=== PATIENT | female | born 1935 | race Two or more races ===

== ENCOUNTER 2019-03-03 16:28 | Inpatient (IN) | payer OTHER ==
[~2019-03-03] VITALS: Ht 157.5 cm; Wt 63.5 kg
[2019-03-04 00:10] VITALS: BP 103/49
--- NOTE | 2019-03-04 00:10 | NUR ---
MS MARIA TERESA ADMITTING NOTES RECEIVED PT VIA DIRECT ADMIT FROM [facility] IN STABLE CONDITION WITH FAMILY AT BEDSIDE. PT A/O X1-2 WITH PERIODS OF CONFUSION. RESPIRATIONS EVEN AND UNLABORED WITH NO S/S OF ACUTE DISTRESS OR SOB NOTED AT THIS TIME. NO COMPLAINTS OF PAIN AT THIS TIME. PT NOTED WITH RHAND #22G PATENT AND INTACT AND SL. SAFETY MEASURES IN PLACE WITH BED IN LOWEST LOCKED POSITION WITH SIDE RAILS UP X2. ORIENTED PT TO ROOM AND STAFF. CALL LIGHT WITHIN REACH. WILL CONTINUE TO MONITOR. Addendum: 03/04/19 at 0451 by ANU DELCID RN PT A/O X2-3 WITH PERIODS OF CONFUSION. PT [place].
--- NOTE | 2019-03-04 00:20 | NUR ---
MS RN NOTES PT REFUSES PHOTOS AT THIS TIME. WILL CONTINUE TO MONITOR.
[2019-03-04] MEDS ORDERED: CELE100C PO (01:07)
[2019-03-04] MEDS ORDERED: SULF1TAB48 PO (01:07)
[2019-03-04] MEDS ORDERED: ATOR20TA PO (01:07)
[2019-03-04] MEDS ORDERED: LOSA1TAB3 PO (01:07)
[2019-03-04] MEDS ORDERED: ASPI-1169 PO (01:07)
[2019-03-04] MEDS ORDERED: CALC0.253 PO (01:07)
[2019-03-04] MEDS ORDERED: MULT1TAB73 PO (01:07)
[2019-03-04] MEDS ORDERED: AMLO5TAB9 PO (01:07)
--- NOTE | 2019-03-04 01:10 | NUR ---
MS RN NOTES MD MADE AWARE OF PT ARRIVAL ONTO UNIT. AWAITING FURTHER ORDERS. WILL CONTINUE TO MONITOR.
--- NOTE | 2019-03-04 03:49 | NUR ---
MS RN NOTES STILL AWAITING MD ORDERS. MD PAGED. WILL CONTINUE TO MONITOR.
[2019-03-04] MEDS ORDERED: HYDROCODONE/APAP 10/325MG 1 EA TABLET PO PRN (04:00)
[2019-03-04] MEDS: ENOXAPARIN SODIUM 40 MG/0.4 ML DISP.SYRIN SQ SCH ×2 (04:00→17:55)
[2019-03-04] MEDS ORDERED: MORPHINE SULFATE INJ 2 MG/ML DISP.SYRIN IV PRN (04:00)
[2019-03-04] MEDS ORDERED: MAGNESIUM HYDROXIDE 30 ML UDC PO PRN (04:00)
[2019-03-04] MEDS ORDERED: ACETAMINOPHEN 325 MG TABLET PO PRN (04:00)
[2019-03-04] MEDS ORDERED: HYDROCODONE/APAP 5/325MG 1 EACH TABLET PO PRN (04:00)
[2019-03-04] MEDS ORDERED: ONDANSETRON HCL/PF 4 MG/2 ML VIAL IVP PRN (04:00)
[2019-03-04] MEDS ORDERED: ZOLPIDEM TARTRATE 5 MG TABLET PO PRN (04:00)
[2019-03-04] MEDS ORDERED: MAG HYDROX/AL HYDROX/SIMETH 30 ML UDC PO PRN (04:00)
[2019-03-04] MEDS ORDERED: Z GUARD REMEDY 2 OZ OINT TP PRN (04:00)
--- NOTE | 2019-03-04 04:29 | NUR ---
MS RN NOTES PT REFUSED LOVENOX AT THIS TIME. PT STATED THAT SHE WANTED TO SLEEP.
[2019-03-04] MEDS: IV NS 0.9% 1,000 ML IV PRN ×2 (04:36→22:06)
[2019-03-04 06:19] LABS: BASOPHILS % (AUTO) 0.6 % (0.0-2.0); EOSINOPHILS % (AUTO) 1.7 % (0.0-6.0); HEMATOCRIT 34 % (33-45); HEMOGLOBIN 11.4 g/dL (11.5-14.8); LYMPHOCYTES # (AUTO) 1.2 /CMM (0.8-4.8); LYMPHOCYTES % (AUTO) 19.8 % (20.0-44.0); MEAN CORPUSCULAR HGB CONC 33 g/dl (31.0-36.0); MEAN CORPUSCULAR VOLUME 94 fL (82-100); MONOCYTES # (AUTO) 0.6 /CMM (0.1-1.30); MONOCYTES % (AUTO) 9.2 % (2.0-12.0); NEUTROPHILS # (AUTO) 4.2 /CMM (1.8-8.9); NEUTROPHILS % (AUTO) 68.7 % (43.0-81.0); PLATELET COUNT (AUTO) 223 /CMM (150-450); RED BLOOD CELL COUNT(AUTO) 3.63 MIL/uL (4.0-5.2); WHITE BLOOD COUNT (AUTO) 6.1 K/uL (4.3-11.0)
--- NOTE | 2019-03-04 06:41 | NUR ---
MS RN NOTES PT IN BED SLEEPING BUT EASILY AWOKEN VERBALLY OR BY TOUCH. PT A/O X2-3 WITH PERIODS OF CONFUSION AND GERMAN SPEAKING. RESPIRATIONS EVEN AND UNLABORED WITH NO S/S OF ACUTE DISTRESS OR SOB NOTED THROUGHOUT SHIFT. NO COMPLAINTS OF PAIN AT THIS TIME. PT NOTED WITH RHAND #22G PATENT AND INTACT INFUSING NS @75CC/HR. SAFETY MEASURES IN PLACE WITH BED IN LOWEST LOCKED POSITION WITH SIDE RAILS UP X2. PT KEPT CLEAN, DRY, AND COMFORTABLE. CALL LIGHT WITHIN REACH. WILL ENDORSE TO ONCOMING NURSE FOR SAURAV.
[2019-03-04 06:54] LABS: CHOLESTEROL 128 mg/dL (<200); HDL CHOLESTEROL 57 mg/dL (40-60); LDL 62 mg/dL (0-99); THYROID STIMULATING HORMONE 1.609 uIU/mL (0.358-3.74); TRIGLYCERIDES 74 mg/dL (30-150)
[2019-03-04 06:59] LABS: ALANINE AMINOTRANSFERASE 30 U/L (12-78); ALBUMIN 2.6 g/dL (3.4-5.0); ALKALINE PHOSPHATASE 127 U/L (46-116); ASPARTATE AMINOTRANSFERASE 34 U/L (15-37); BILIRUBIN,TOTAL 0.4 mg/dL (0.2-1.0); CALCIUM, SERUM 8.8 mg/dL (8.5-10.1); CARBON DIOXIDE 24 mmol/L (21-32); CHLORIDE 104 mmol/L (98-107); CREATININE 1.1 mg/dL (0.6-1.3); GLUCOSE 73 mg/dL (74-106); MAGNESIUM 1.7 mg/dL (1.8-2.4); PHOSPHORUS 3.6 mg/dL (2.5-4.9); POTASSIUM 4.6 mmol/L (3.5-5.1); SODIUM SERUM 140 mmol/L (136-145); TOTAL PROTEIN, SERUM 6.6 g/dL (6.4-8.2); UREA NITROGEN, BLOOD 22 mg/dL (7-18)
[2019-03-04 08:00] VITALS: BP 103/63
[2019-03-04] MEDS: SULFAMETH/TRIMETH 800/160 MG 1 UDTAB TABLET PO SCH ×2 (08:27→16:22)
[2019-03-04] MEDS: MULTIVITAMINS,THERAGRAN 1 UDTAB TABLET PO SCH (08:27)
[2019-03-04] MEDS: CALCITRIOL 0.25 MCG CAPSULE PO SCH ×2 (08:27→16:22)
[2019-03-04] MEDS: ASPIRIN 81 MG TAB.CHEW PO SCH (08:27)
[2019-03-04] MEDS: LOSARTAN/HCTZ 50-12.5MG/ 1 EA TABLET PO SCH (08:28)
[2019-03-04] MEDS: AMLODIPINE BESYLATE 5 MG TABLET PO SCH (08:28)
[2019-03-04] MEDS: Magnesium 1GM/D5W 100ML PREMIX 100 ML IV SCH ×2 (12:40→13:47)
[2019-03-04 16:00] VITALS: BP 111/56
--- NOTE | 2019-03-04 18:00 | NUR ---
Patient refused Lovenox. Education provided and patient still strongly refuse
--- NOTE | 2019-03-04 18:58 | NUR ---
Patient in bed resting comfortably , IV fluids running as ordered. Patient able to use BSC with assistance. All needs attended, patient kept clean and dry. Breathing unlabored and even on room air, not in any distress, denies discomfort and pain. Will endorse to next shift for SAURAV.
--- NOTE | 2019-03-04 19:08 | NUR ---
Bed alarm activated for safety, call light within reach
--- NOTE | 2019-03-04 19:10 | NUR ---
MS RN OPENING NOTES Received patient A/O x 1, awake on bed, on RA, no s/sx of discomfort noted at this time. Kept on bed clean, dry and comfortable. Call light within easy reach. On fall and aspiration precautions. Will continue to monitor accordingly.
[2019-03-04 20:00] VITALS: BP 111/56
[2019-03-04] MEDS ORDERED: ATORVASTATIN 10 MG TABLET PO SCH (22:00)
[2019-03-05 06:16] LABS: BASOPHILS % (AUTO) 0.9 % (0.0-2.0); EOSINOPHILS % (AUTO) 3.4 % (0.0-6.0); HEMATOCRIT 30 % (33-45); HEMOGLOBIN 10.1 g/dL (11.5-14.8); LYMPHOCYTES # (AUTO) 1.4 /CMM (0.8-4.8); LYMPHOCYTES % (AUTO) 26.1 % (20.0-44.0); MEAN CORPUSCULAR HGB CONC 34 g/dl (31.0-36.0); MEAN CORPUSCULAR VOLUME 94 fL (82-100); MONOCYTES # (AUTO) 0.6 /CMM (0.1-1.30); MONOCYTES % (AUTO) 10.7 % (2.0-12.0); NEUTROPHILS # (AUTO) 3.1 /CMM (1.8-8.9); NEUTROPHILS % (AUTO) 58.9 % (43.0-81.0); PLATELET COUNT (AUTO) 193 /CMM (150-450); RED BLOOD CELL COUNT(AUTO) 3.16 MIL/uL (4.0-5.2); WHITE BLOOD COUNT (AUTO) 5.2 K/uL (4.3-11.0)
--- NOTE | 2019-03-05 06:41 | NUR ---
MS RN CLOSING NOTES Patient asleep, easily awaken. On RA, no SOB/respiratory stress noted. No complaints of pain at this time. Due meds given as ordered. All nursing needs attended. On fall and aspiration precautions. Endorsed to the next shift.
[2019-03-05 06:46] LABS: PHOSPHORUS 2.8 mg/dL (2.5-4.9)
[2019-03-05 08:00] VITALS: BP 100/45
--- NOTE | 2019-03-05 08:00 | NUR ---
MS RN OPENING NOTES Received patient A/O x 1, awake on bed, on RA, no s/sx of discomfort noted at this time. Kept on bed clean, dry and comfortable.Assisted to the bedside commode to void and back to bed.Good pericare done.Pt crying in pain.Will do pain mgt with [place] PRN. Son in law at the bedside.Call light within easy reach. On fall and aspiration precautions. Will continue to monitor accordingly.
[2019-03-05] MEDS: LOSARTAN/HCTZ 50-12.5MG/ 1 EA TABLET PO SCH (08:42)
[2019-03-05 08:43] VITALS: BP 100/45
[2019-03-05] MEDS: AMLODIPINE BESYLATE 5 MG TABLET PO SCH (08:43)
[2019-03-05] MEDS: MULTIVITAMINS,THERAGRAN 1 UDTAB TABLET PO SCH (08:46)
[2019-03-05] MEDS: SULFAMETH/TRIMETH 800/160 MG 1 UDTAB TABLET PO SCH (08:46)
[2019-03-05] MEDS: CALCITRIOL 0.25 MCG CAPSULE PO SCH (08:46)
[2019-03-05] MEDS: ASPIRIN 81 MG TAB.CHEW PO SCH (08:46)
--- NOTE | 2019-03-05 08:58 | NUR ---
WOUND CARE CONSULT: PT PRESENTS WITH MULTIPLE AREAS OF BRUISING/SKIN DISCOLORATION AND RAISED AREA TO RT BUTTOCK, SACRAL SCAR, ALL PRESENT ON ADMISSION. PT EXAMINED BY Hi GUERRA N.P. AND NO NEED FOR SURGICAL CONSULT PER N.P. CURRENT RUBY SCORE IS 15. RECOMMENDATIONS MADE FOR SKIN PROTECTION. DISCUSSED WITH NURSING STAFF. WILL SEE PRN. O[place] IN AGREEMENT WITH PLAN OF CARE. Addendum: 03/05/19 at 0900 by AILIN HALL WNDNU Amended: Links added.
[2019-03-05] MEDS: ENSURE ENLIVE CHOC 237 ML CAN PO SCH ×2 (09:00→12:00)
--- NOTE | 2019-03-05 14:48 | NUR ---
DISCHARGED PT HOME WITH [facility] FOLLOW UP FOR PT REHAB [place] . IV H/L REMOVED TO RT HAND WITH NO BLEEDING NOTED.WITH STABLE V/S.DENIES PAIN OR DISTRESS AND WAS RUSHING TO GO HOME.ACCOMPANIED BY HER SON IN LAW,
== END 2019-03-05 14:48 | disposition home health service (06) | DRG 384 ==
LOC: MEDSG2 23:58
PROVIDERS: ADMIT Internal Medicine; ATTEND Nurse Practitioner Acute Care
DX: S30.0XXA Contusion of lower back and pelvis, initial encounter (principal); N17.0 Acute kidney failure with tubular necrosis; E43 Unspecified severe protein-calorie malnutrition; G93.41 Metabolic encephalopathy; E83.42 Hypomagnesemia; D64.9 Anemia, unspecified; I10 Essential (primary) hypertension; F03.90 Unspecified dementia, unspecified severity, without behavioral disturbance, psychotic disturbance, mood disturbance, and anxiety; W18.30XA Fall on same level, unspecified, initial encounter; Y92.009 Unspecified place in unspecified non-institutional (private) residence as the place of occurrence of the external cause; N39.0 Urinary tract infection, site not specified; Z87.442 Personal history of urinary calculi; N20.0 Calculus of kidney; E78.5 Hyperlipidemia, unspecified; Z88.0 Allergy status to penicillin
CPT/HCPCS: 36415; 80048-TC; 80053-TC; 80061-TC; 83735-TC; 84100-TC; 84443-TC; 85025-TC; 87081-TC; 93307-TC; 97110-TC; 97116-TC; 97530-TC; G0378; J3475; J7030